=== PATIENT | female | born 1965 | race Caucasian/White ===

== ENCOUNTER 2024-02-25 11:40 | Emergency (ER) | payer BC, OTHER ==
[2024-02-25 11:51] VITALS: BP 116/78; PULSE 92; RESP 20; TEMP 97.6; BMI 23.6
[2024-02-25 13:06] LABS: BASO % 1.1 % (0-2.0); EOS % 1.3 % (0-4.5); HEMATOCRIT 32.2 % (32.4-45.2); HEMOGLOBIN 10.8 GM/dL (10.7-15.3); LYMPH % 32.3 % (8-40); MCHC 33.5 g/dl (32.0-36.0); MEAN CELL VOLUME 95.5 fl (80-96); MEAN PLT VOLUME 7.9 fl (7.5-11.1); MONO % 9.1 % (3.8-10.2); NEUT % 56.2 % (42.8-82.8); PLATELET COUNT 301 10^3/uL (134-434); RBC 3.37 M/mm3 (3.60-5.2); RDW 14.2 % (11.6-15.6); WHITE BLOOD COUNT 4.7 K/mm3 (4.0-10.0)
[2024-02-25] MEDS ORDERED: oxyCODONE HCL 5 MG TABLET ONE (13:12)
[2024-02-25] MEDS: oxyCODONE HCL 5 MG TABLET PO ONE (13:15)
[2024-02-25 13:27] LABS: POTASSIUM 4.4 mmol/L (3.5-5.1)
[2024-02-25 13:31] LABS: ALBUMIN 3.8 g/dl (3.4-5.0); BLOOD UREA NITROGEN 10.4 mg/dL (7-18); MAGNESIUM 2.1 mg/dL (1.8-2.4)
[2024-02-25 13:34] LABS: CREATININE 0.5 mg/dL (0.55-1.3)
[2024-02-25 13:35] LABS: BILIRUBIN,TOTAL 0.8 mg/dL (0.2-1); TOT PROT 7.3 g/dl (6.4-8.2)
== END 2024-02-25 14:00 | disposition home or self-care (01) ==
LOC: JERFT 11:40
DX: G62.9 Polyneuropathy, unspecified (principal)
CPT/HCPCS: 36415; 80053; 83735; 85025; 99283-25

== ENCOUNTER 2024-07-18 22:26 | Emergency (ER) | payer OTHER ==
[2024-07-18 22:32] VITALS: BMI 27.1
[2024-07-18 23:14] LABS: BASO % 1.1 % (0-2.0); HEMATOCRIT 34.1 % (32.4-45.2); HEMOGLOBIN 11.6 GM/dL (10.7-15.3); LYMPH % 54.1 % (8-40); MCH 31.3 pg (25.7-33.7); MCHC 33.9 g/dl (32.0-36.0); MEAN CELL VOLUME 92.1 fl (80-96); MONO % 8.3 % (3.8-10.2); NEUT % 35.5 % (42.8-82.8); PLATELET COUNT 237 10^3/uL (134-434); RDW 14.6 % (11.6-15.6); WHITE BLOOD COUNT 4.2 K/mm3 (4.0-10.0)
[2024-07-18 23:56] LABS: ALBUMIN 4.2 g/dl (3.4-5.0)
[2024-07-18 23:57] LABS: CALCIUM 9.2 mg/dL (8.5-10.1)
[2024-07-19] LABS: CREATININE 0.5 mg/dL (0.55-1.3); POTASSIUM 3.6 mmol/L (3.5-5.1)
[2024-07-19 00:02] LABS: TOT PROT 7.9 g/dl (6.4-8.2)
[2024-07-19] MEDS ORDERED: ACETAMINOPHEN INJECTION 100 ML ONE (00:04)
[2024-07-19] MEDS: ACETAMINOPHEN 1000 MG/100 ML BAG IVPB ONE (00:06)
[2024-07-19 00:13] LABS: BLOOD UREA NITROGEN 10.1 mg/dL (7-18)
[2024-07-19 00:23] LABS: BILIRUBIN,TOTAL 0.4 mg/dL (0.2-1)
[2024-07-19 00:51] VITALS: BP 128/79; PULSE 90; RESP 16; TEMP 98.2
== END 2024-07-19 00:51 | disposition home or self-care (01) ==
LOC: JER 22:26
PROC: 3E033NZ Introduction of Analgesics, Hypnotics, Sedatives into Peripheral Vein, Percutaneous Approach (ICD-10-PCS; principal; 2024-07-19)
DX: R07.89 Other chest pain (principal); R05.9 Cough, unspecified
CPT/HCPCS: 36415; 80053; 84484; 85025; 93005; 93010; 99284-25; J0131

== ENCOUNTER 2024-07-19 03:49 | Emergency (ER) | payer OTHER ==
[2024-07-19 04:14] VITALS: TEMP 98; BMI 28.0
[2024-07-19] MEDS ORDERED: IBUPROFEN 600 MG TABLET (FP) PO ONE (04:54)
[2024-07-19] MEDS ORDERED: ACETAMINOPHEN 325 MG TABLET (FP) ONE (04:54)
[2024-07-19] MEDS: ACETAMINOPHEN 500 MG TABLET (FP) PO ONE (04:59)
[2024-07-19] MEDS: IBUPROFEN 600 MG TABLET (FP) PO ONE (04:59)
[2024-07-19 05:54] VITALS: BP 110/69; PULSE 80; RESP 16
== END 2024-07-19 13:02 | disposition home or self-care (01) ==
LOC: JER 03:49
DX: R07.89 Other chest pain (principal); Z63.79 Other stressful life events affecting family and household
CPT/HCPCS: 99283-25

== ENCOUNTER 2024-07-21 12:57 | Observation (INO) | payer OTHER ==
[2024-07-21 13:46] VITALS: RESP 20; TEMP 98.4; BMI 27.1
[2024-07-21] MEDS ORDERED: ACETAMINOPHEN INJECTION 100 ML ONE (13:50)
[2024-07-21 13:56] LABS: BASO % 0.6 % (0-2.0); EOS % 0.2 % (0-4.5); HEMATOCRIT 32.1 % (32.4-45.2); HEMOGLOBIN 10.7 GM/dL (10.7-15.3); LYMPH % 38.7 % (8-40); MCH 31.3 pg (25.7-33.7); MCHC 33.4 g/dl (32.0-36.0); MEAN CELL VOLUME 93.7 fl (80-96); MEAN PLT VOLUME 7.3 fl (7.5-11.1); MONO % 5.9 % (3.8-10.2); NEUT % 54.6 % (42.8-82.8); PLATELET COUNT 202 10^3/uL (134-434); RBC 3.43 M/mm3 (3.60-5.2); RDW 14.9 % (11.6-15.6); WHITE BLOOD COUNT 4.3 K/mm3 (4.0-10.0)
[2024-07-21] MEDS: ACETAMINOPHEN 1000 MG/100 ML BAG IVPB ONE (13:58)
[2024-07-21 14:00] LABS: EPI CELLS 11 /uL (0-25.1); HYALINE CASTS 3 /uL (0-3.1); PH,URINE 5.5 (5.0-8.0); URINE APPEARANCE CLEAR; URINE BACTERIA 37 /uL (0-1359); URINE BILIRUBIN NEGATIVE (NEGATIVE); URINE COLOR YELLOW; URINE GLUCOSE (UA) NEGATIVE (NEGATIVE); URINE KETONE TRACE (NEGATIVE); URINE LEUK ESTERASE TRACE (NEGATIVE); URINE NITRITE NEGATIVE (NEGATIVE); URINE PROTEIN NEGATIVE (NEGATIVE); URINE RBC 29 /uL (0-23.9); URINE UROBILINOGEN 0.2 mg/dL (0.2-1.0); URINE WBC 13 /uL (0-25.8)
[2024-07-21 14:02] LABS: INR 0.95 (0.83-1.09); PROTHROMBIN TIME (PATIENT) 10.8 SEC (9.7-13.0)
[2024-07-21 14:04] LABS: ACTIVATED PTT 29.6 SECONDS (25.2-36.5)
[2024-07-21 14:13] LABS: POTASSIUM 3.5 mmol/L (3.5-5.1)
[2024-07-21 14:18] LABS: BLOOD UREA NITROGEN 9.9 mg/dL (7-18)
[2024-07-21 14:19] LABS: CALCIUM 8.8 mg/dL (8.5-10.1)
[2024-07-21 14:22] LABS: CREATININE 0.5 mg/dL (0.55-1.3)
[2024-07-21 14:23] LABS: BILIRUBIN,TOTAL 0.6 mg/dL (0.2-1); TOT PROT 7.6 g/dl (6.4-8.2)
[2024-07-21 16:33] VITALS: BP 111/65; PULSE 94
[2024-07-21] MEDS ORDERED: ACETAMINOPHEN 325 MG TABLET (FP) PO PRN (17:46)
== END 2024-07-21 20:40 | disposition left against medical advice (07) ==
LOC: JER 12:57 → JERBED 17:21
PROVIDERS: ADMIT Internal Medicine; ATTEND Internal Medicine
PROC: 3E033NZ Introduction of Analgesics, Hypnotics, Sedatives into Peripheral Vein, Percutaneous Approach (ICD-10-PCS; principal; 2024-07-21)
DX: R07.9 Chest pain, unspecified (principal); G62.9 Polyneuropathy, unspecified; K76.0 Fatty (change of) liver, not elsewhere classified; Z29.89 Encounter for other specified prophylactic measures
CPT/HCPCS: 36415; 71045-TC-FY; 71275-TC; 80053; 81003; 84443; 84484; 85025; 85379; 85610; 85730; 87086; 93005; 93010; 96374; 99285-25; G0378; J0131; Q9967

== ENCOUNTER 2024-07-29 20:48 | Observation (INO) | payer OTHER ==
[2024-07-29 21:12] VITALS: BMI 27.8
[2024-07-29] MEDS ORDERED: ACETAMINOPHEN 325 MG TABLET (FP) ONE (22:15)
[2024-07-29] MEDS: ACETAMINOPHEN 325 MG TABLET (FP) PO ONE (22:24)
[2024-07-30] MEDS ORDERED: ACETAMINOPHEN 500 MG TABLET (FP) PO PRN (02:23)
[2024-07-30 08:59] LABS: HEMATOCRIT 30.7 % (32.4-45.2); HEMOGLOBIN 10.2 GM/dL (10.7-15.3); MCHC 33.3 g/dl (32.0-36.0); MEAN CELL VOLUME 96.1 fl (80-96); MEAN PLT VOLUME 7.3 fl (7.5-11.1); PLATELET COUNT 172 10^3/uL (134-434); RDW 15.6 % (11.6-15.6); WHITE BLOOD COUNT 2.9 K/mm3 (4.0-10.0)
[2024-07-30 09:09] LABS: POTASSIUM 3.6 mmol/L (3.5-5.1)
[2024-07-30 09:13] LABS: ALBUMIN 3.4 g/dl (3.4-5.0); BLOOD UREA NITROGEN 9.5 mg/dL (7-18); CALCIUM 8.4 mg/dL (8.5-10.1); MAGNESIUM 2.1 mg/dL (1.8-2.4)
[2024-07-30 09:16] LABS: CREATININE 0.4 mg/dL (0.55-1.3); PHOSPHOROUS 3.5 mg/dL (2.5-4.9)
[2024-07-30 09:18] LABS: BILIRUBIN,TOTAL 0.4 mg/dL (0.2-1); TOT PROT 6.9 g/dl (6.4-8.2)
[2024-07-30] MEDS: DULoxetine HCL 30 MG CAPSULE.DR PO SCH (11:11)
[2024-07-30 12:12] VITALS: BP 124/74; PULSE 86; RESP 17; TEMP 98.2
== END 2024-07-30 14:15 | disposition home or self-care (01) ==
LOC: JER 20:48 → JERBED 23:43 → INTOOBSV 23:43
PROVIDERS: ADMIT Internal Medicine; ATTEND Internal Medicine
DX: R07.89 Other chest pain (principal); F41.9 Anxiety disorder, unspecified; T74.11XA Adult physical abuse, confirmed, initial encounter; Y07.010 Husband, current, perpetrator of maltreatment and neglect; Y93.89 Activity, other specified; Y92.89 Other specified places as the place of occurrence of the external cause; K76.0 Fatty (change of) liver, not elsewhere classified
CPT/HCPCS: 36415; 71045-TC-FY; 80053; 82550; 82553; 83735; 84100; 84484; 85027; 93005; 93010; 99285-25; G0378

== ENCOUNTER 2024-08-03 17:51 | Inpatient (IN) | payer OTHER ==
[2024-08-03 18:28] VITALS: BMI 27.8
[2024-08-03] MEDS ORDERED: MAGNESIUM HYDROX 2400MG/30ML ORAL SUSPENSION 30 ML CUP PO PRN (19:59)
[2024-08-03] MEDS ORDERED: DICYCLOMINE HCL 10 MG CAPSULE PO PRN (19:59)
[2024-08-03] MEDS ORDERED: guaiFENesin 600 MG TABLET.ER (FP) PO PRN (19:59)
[2024-08-03] MEDS ORDERED: NALOXONE (NARCAN) HCL 4 MG/0.1 ML SPRAY NS PRN (19:59)
[2024-08-03] MEDS ORDERED: ONDANSETRON *ODT* 4 MG TABLET SL PRN (19:59)
[2024-08-03] MEDS ORDERED: BENZOCAINE/MENTHOL (CHLORASEPTIC ) LOZENGE MM PRN (19:59)
[2024-08-03] MEDS ORDERED: MAG HYDROX/AL HYDROX/SIMETH 30 ML UNIT-DOSE CUP PO PRN (19:59)
[2024-08-03] MEDS ORDERED: POLYETHYLENE GLYCOL (HEALTHYLAX) 3350 17 GM PACKET PO PRN (19:59)
[2024-08-03] MEDS ORDERED: IBUPROFEN 600 MG TABLET (FP) PO PRN (19:59)
[2024-08-03] MEDS ORDERED: IBUPROFEN 400 MG TABLET (FP) PO PRN (19:59)
[2024-08-03] MEDS ORDERED: BENZONATATE 200 MG CAPSULE PO PRN (19:59)
[2024-08-03] MEDS ORDERED: LOPERAMIDE HCL 2 MG CAPSULE PO PRN (19:59)
[2024-08-03] MEDS ORDERED: BISMUTH SUBSALICYLATE 524 MG/30 ML PO PRN (19:59)
[2024-08-03] MEDS: NALOXONE (NYS OPIOID OVERDOSE PROGRAM) 4 MG/0.1 ML SPRAY NS ONE (22:59)
[2024-08-03] MEDS: MELATONIN 5 MG TABLETS PO SCH (23:00)
[2024-08-03] MEDS: THIAMINE 100 MG TABLET PO SCH (23:00)
[2024-08-04] MEDS: PRENATAL VITAMINS W/ FOLIC ACID TABLET (FP) PO SCH (10:55)
[2024-08-04] MEDS: hydrOXYzine PAMOATE 25 MG CAPSULE (FP) PO PRN (10:56)
[2024-08-04 11:24] LABS: HEMOGLOBIN 10.7 GM/dL (10.7-15.3); MCH 32.3 pg (25.7-33.7); MCHC 33.5 g/dl (32.0-36.0); MEAN CELL VOLUME 96.5 fl (80-96); MEAN PLT VOLUME 7.6 fl (7.5-11.1); PLATELET COUNT 180 10^3/uL (134-434); RBC 3.31 M/mm3 (3.60-5.2); RDW 16.9 % (11.6-15.6); WHITE BLOOD COUNT 4.2 K/mm3 (4.0-10.0)
[2024-08-04 15:02] LABS: CHLORIDE 103 mmol/L (98-107); POTASSIUM 4.2 mmol/L (3.5-5.1); SODIUM 139 mmol/L (136-145)
[2024-08-04 15:04] LABS: ALBUMIN 3.5 g/dl (3.4-5.0); ANION GAP 8 mmol/L (4-13); BLOOD UREA NITROGEN 12.3 mg/dL (7-18); CO2 28 mmol/L (21-32); GLUCOSE,RANDOM 140 mg/dL (74-106)
[2024-08-04 15:08] LABS: CREATININE 0.6 mg/dL (0.55-1.3); SGOT/AST 32 U/L (15-37); SGPT/ALT 25 U/L (13-61)
[2024-08-04 15:09] LABS: BILIRUBIN,TOTAL 0.7 mg/dL (0.2-1); TOT PROT 6.7 g/dl (6.4-8.2)
[2024-08-04 15:10] LABS: ALK PHOS 133 U/L (45-117)
[2024-08-04] MEDS: METHOCARBAMOL 500 MG TABLET PO PRN (17:39)
[2024-08-05] MEDS: ACETAMINOPHEN 325 MG TABLET (FP) PO PRN (05:56)
[2024-08-05 09:37] VITALS: RESP 18
[2024-08-05 13:21] VITALS: BP 114/65; PULSE 96; TEMP 98.2
== END 2024-08-05 14:48 | disposition home or self-care (01) | DRG 775 ==
LOC: YASAS 17:51 → Y6N 20:11
PROVIDERS: ADMIT Allergy & Immunology; ATTEND Surgery
PROC: HZ2ZZZZ Detoxification Services for Substance Abuse Treatment (ICD-10-PCS; principal; 2024-08-03)
DX: F10.20 Alcohol dependence, uncomplicated (principal); F10.280 Alcohol dependence with alcohol-induced anxiety disorder; F10.282 Alcohol dependence with alcohol-induced sleep disorder; F32.A Depression, unspecified; M94.0 Chondrocostal junction syndrome [Tietze]; Z86.718 Personal history of other venous thrombosis and embolism
CPT/HCPCS: 0241U-QW; 36415; 71045-TC-FY; 80048; 80053; 80305; 80307; 83735; 84100; 84484; 85025; 85027; 86780; 86803; 87389; 93005; 93010; 93971-TC; 99285-25; G0378

== ENCOUNTER 2024-08-06 07:57 | Emergency (ER) | payer OTHER ==
[2024-08-06 08:22] VITALS: BP 131/85; PULSE 81; RESP 18; TEMP 97.5; BMI 23.3
[2024-08-06] MEDS ORDERED: MAG HYDROX/AL HYDROX/SIMETH 30 ML UNIT-DOSE CUP ONE (08:33)
[2024-08-06] MEDS ORDERED: ACETAMINOPHEN INJECTION 100 ML ONE (08:33)
[2024-08-06] MEDS ORDERED: FAMOTIDINE 20 MG/50 ML IVPB 20 MG/50 ML MG IVPB ONE (08:33)
[2024-08-06] MEDS: MAG HYDROX/AL HYDROX/SIMETH 30 ML UNIT-DOSE CUP PO ONE (08:50)
[2024-08-06] MEDS: SODIUM CHLORIDE 0.9% 500 ML INFUS.BAG IV ONE (08:51)
[2024-08-06] MEDS: ACETAMINOPHEN 1000 MG/100 ML BAG IVPB ONE (08:52)
[2024-08-06] MEDS: FAMOTIDINE 20 MG/50 ML IVPB 20 MG/50 ML MG IVPB ONE (08:54)
[2024-08-06 08:59] LABS: BASO % 0.7 % (0-2.0); EOS % 0.9 % (0-4.5); HEMATOCRIT 32.3 % (32.4-45.2); HEMOGLOBIN 10.9 GM/dL (10.7-15.3); LYMPH % 41.3 % (8-40); MCH 32.6 pg (25.7-33.7); MCHC 33.7 g/dl (32.0-36.0); MEAN CELL VOLUME 96.7 fl (80-96); MEAN PLT VOLUME 7.6 fl (7.5-11.1); MONO % 10.8 % (3.8-10.2); NEUT % 46.3 % (42.8-82.8); PLATELET COUNT 207 10^3/uL (134-434); RBC 3.34 M/mm3 (3.60-5.2); RDW 17.2 % (11.6-15.6); WHITE BLOOD COUNT 3.5 K/mm3 (4.0-10.0)
[2024-08-06 09:21] LABS: ALBUMIN 3.6 g/dl (3.4-5.0); BLOOD UREA NITROGEN 6.2 mg/dL (7-18); CALCIUM 8.7 mg/dL (8.5-10.1)
[2024-08-06 09:24] LABS: CREATININE 0.4 mg/dL (0.55-1.3)
[2024-08-06 09:26] LABS: BILIRUBIN,TOTAL 0.3 mg/dL (0.2-1); TOT PROT 7.1 g/dl (6.4-8.2)
== END 2024-08-06 10:33 | disposition home or self-care (01) ==
LOC: JER 07:57
PROC: 3E033GC Introduction of Other Therapeutic Substance into Peripheral Vein, Percutaneous Approach (ICD-10-PCS; principal; 2024-08-06)
PROC: 3E033NZ Introduction of Analgesics, Hypnotics, Sedatives into Peripheral Vein, Percutaneous Approach (ICD-10-PCS; 2024-08-06)
DX: R07.89 Other chest pain (principal); G89.29 Other chronic pain
CPT/HCPCS: 36415; 71045-TC-FY; 80053; 84484; 85025; 93005; 93010; 96365; 96375; 99285-25; J0131

== ENCOUNTER 2024-08-06 19:21 | Emergency (ER) | payer OTHER ==
[2024-08-06 19:26] VITALS: BP 120/84; PULSE 86; RESP 17; TEMP 97.9; BMI 26.6
== END 2024-08-06 21:04 | disposition home or self-care (01) ==
LOC: JER 19:21
DX: R07.89 Other chest pain (principal); G89.29 Other chronic pain; F10.90 Alcohol use, unspecified, uncomplicated
CPT/HCPCS: 93005; 93010; 99284-25

== ENCOUNTER 2024-08-08 16:52 | Emergency (ER) | payer OTHER ==
[2024-08-08 17:42] VITALS: BP 104/67; PULSE 89; RESP 20; TEMP 98.7; BMI 26.6
[2024-08-08] MEDS ORDERED: ACETAMINOPHEN INJECTION 100 ML ONE (18:28)
[2024-08-08 18:33] LABS: BASO % 0.8 % (0-2.0); EOS % 0.8 % (0-4.5); HEMATOCRIT 32.3 % (32.4-45.2); HEMOGLOBIN 10.9 GM/dL (10.7-15.3); LYMPH % 40.8 % (8-40); MCH 32.6 pg (25.7-33.7); MCHC 33.7 g/dl (32.0-36.0); MEAN PLT VOLUME 7.1 fl (7.5-11.1); MONO % 11.6 % (3.8-10.2); PLATELET COUNT 213 10^3/uL (134-434); RBC 3.34 M/mm3 (3.60-5.2); RDW 18.5 % (11.6-15.6); WHITE BLOOD COUNT 2.9 K/mm3 (4.0-10.0)
[2024-08-08] MEDS: ACETAMINOPHEN 1000 MG/100 ML BAG IVPB ONE (18:41)
[2024-08-08 18:55] LABS: POTASSIUM 3.6 mmol/L (3.5-5.1)
[2024-08-08 18:58] LABS: BLOOD UREA NITROGEN 9.6 mg/dL (7-18)
[2024-08-08 19:01] LABS: CREATININE 0.5 mg/dL (0.55-1.3)
[2024-08-08 19:02] LABS: BILIRUBIN,TOTAL 0.4 mg/dL (0.2-1); TOT PROT 7.7 g/dl (6.4-8.2)
== END 2024-08-08 21:32 | disposition home or self-care (01) ==
LOC: JER 16:52
PROC: 3E033NZ Introduction of Analgesics, Hypnotics, Sedatives into Peripheral Vein, Percutaneous Approach (ICD-10-PCS; principal; 2024-08-08)
DX: R07.2 Precordial pain (principal); Z20.822 Contact with and (suspected) exposure to COVID-19
CPT/HCPCS: 0241U-QW; 36415; 71045-TC-FY; 80053; 84484; 85025; 93005; 93010; 99285-25; J0131

== ENCOUNTER 2024-08-08 23:32 | Emergency (ER) | payer OTHER ==
[2024-08-09] VITALS: BP 122/79; PULSE 90; RESP 18; TEMP 97.6; BMI 25.7
== END 2024-08-09 01:32 | disposition home or self-care (01) ==
LOC: JER 23:32
DX: R07.2 Precordial pain (principal); Z76.5 Malingerer [conscious simulation]; M79.662 Pain in left lower leg
CPT/HCPCS: 99283-25

== ENCOUNTER 2024-08-14 14:12 | Emergency (ER) | payer OTHER ==
[2024-08-14 14:22] VITALS: BP 105/77; PULSE 87; RESP 16; TEMP 98; BMI 26.6
[2024-08-14] MEDS ORDERED: ACETAMINOPHEN INJECTION 100 ML ONE (15:18)
[2024-08-14 15:24] LABS: EOS % 0.8 % (0-4.5); HEMATOCRIT 31.1 % (32.4-45.2); HEMOGLOBIN 10.4 GM/dL (10.7-15.3); LYMPH % 36.2 % (8-40); MCHC 33.6 g/dl (32.0-36.0); MEAN CELL VOLUME 98.1 fl (80-96); MEAN PLT VOLUME 6.8 fl (7.5-11.1); MONO % 11.6 % (3.8-10.2); NEUT % 50.4 % (42.8-82.8); PLATELET COUNT 210 10^3/uL (134-434); RBC 3.17 M/mm3 (3.60-5.2); RDW 18.8 % (11.6-15.6); WHITE BLOOD COUNT 3.3 K/mm3 (4.0-10.0)
[2024-08-14] MEDS: SODIUM CHLORIDE 1,000 ML IV STA (15:25)
[2024-08-14] MEDS: ACETAMINOPHEN 1000 MG/100 ML BAG IVPB ONE (15:25)
[2024-08-14 15:38] LABS: POTASSIUM 3.7 mmol/L (3.5-5.1)
[2024-08-14 15:39] LABS: ALBUMIN 3.4 g/dl (3.4-5.0); CALCIUM 8.6 mg/dL (8.5-10.1)
[2024-08-14 15:40] LABS: BLOOD UREA NITROGEN 12.2 mg/dL (7-18)
[2024-08-14 15:44] LABS: BILIRUBIN,TOTAL 0.2 mg/dL (0.2-1); CREATININE 0.5 mg/dL (0.55-1.3)
== END 2024-08-14 16:50 | disposition home or self-care (01) ==
LOC: JER 14:12
PROC: 3E033NZ Introduction of Analgesics, Hypnotics, Sedatives into Peripheral Vein, Percutaneous Approach (ICD-10-PCS; principal; 2024-08-14)
PROC: 3E0337Z Introduction of Electrolytic and Water Balance Substance into Peripheral Vein, Percutaneous Approach (ICD-10-PCS; 2024-08-14)
DX: R07.89 Other chest pain (principal); M79.661 Pain in right lower leg; M79.662 Pain in left lower leg; G89.29 Other chronic pain; G62.9 Polyneuropathy, unspecified
CPT/HCPCS: 36415; 71046-TC-FY; 80053; 84484; 85025; 93005; 93010; 96361; 96374; 99285-25; J0131

== ENCOUNTER 2024-08-14 18:13 | Emergency (ER) | payer OTHER ==
[2024-08-14 18:35] VITALS: BP 140/90; PULSE 98; RESP 16; TEMP 98.6; BMI 25.8
== END 2024-08-14 21:40 | disposition home or self-care (01) ==
LOC: JER 18:13
DX: R07.9 Chest pain, unspecified (principal); Z76.5 Malingerer [conscious simulation]
CPT/HCPCS: 82962; 93005; 93010; 99283-25

== ENCOUNTER 2024-08-24 03:28 | Inpatient (IN) | payer OTHER ==
[2024-08-24 04:10] VITALS: BMI 25.0
[2024-08-24] MEDS ORDERED: DICYCLOMINE HCL 10 MG CAPSULE PO PRN (05:58)
[2024-08-24] MEDS ORDERED: MAG HYDROX/AL HYDROX/SIMETH 30 ML UNIT-DOSE CUP PO PRN (05:58)
[2024-08-24] MEDS ORDERED: BENZOCAINE/MENTHOL (CHLORASEPTIC ) LOZENGE MM PRN (05:58)
[2024-08-24] MEDS ORDERED: NALOXONE (NYS OPIOID OVERDOSE PROGRAM) 4 MG/0.1 ML SPRAY NS PRN (05:58)
[2024-08-24] MEDS ORDERED: MAGNESIUM HYDROX 2400MG/30ML ORAL SUSPENSION 30 ML CUP PO PRN (05:58)
[2024-08-24] MEDS ORDERED: LOPERAMIDE HCL 2 MG CAPSULE PO PRN (05:58)
[2024-08-24] MEDS ORDERED: IBUPROFEN 400 MG TABLET (FP) PO PRN (05:58)
[2024-08-24] MEDS ORDERED: BENZONATATE 200 MG CAPSULE PO PRN (05:58)
[2024-08-24] MEDS ORDERED: NALOXONE (NARCAN) HCL 4 MG/0.1 ML SPRAY NS PRN (05:58)
[2024-08-24] MEDS ORDERED: ONDANSETRON *ODT* 4 MG TABLET SL PRN (05:58)
[2024-08-24] MEDS ORDERED: guaiFENesin 600 MG TABLET.ER (FP) PO PRN (05:58)
[2024-08-24] MEDS ORDERED: POLYETHYLENE GLYCOL (HEALTHYLAX) 3350 17 GM PACKET PO PRN (05:58)
[2024-08-24] MEDS ORDERED: BISMUTH SUBSALICYLATE 524 MG/30 ML PO PRN (05:58)
[2024-08-24] MEDS ORDERED: chlordiazePOXIDE HCL 25 MG CAPSULE ONE ×2 (06:18→10:45)
[2024-08-24] MEDS ORDERED: hydrOXYzine PAMOATE 25 MG CAPSULE (FP) PO ONE (06:18)
[2024-08-24] MEDS ORDERED: METHOCARBAMOL 500 MG TABLET ONE (06:18)
[2024-08-24] MEDS: hydrOXYzine PAMOATE 25 MG CAPSULE (FP) PO PRN (06:22)
[2024-08-24] MEDS: METHOCARBAMOL 500 MG TABLET PO PRN (06:22)
[2024-08-24] MEDS: chlordiazePOXIDE HCL 25 MG CAPSULE PO PRN (06:22)
[2024-08-24] MEDS ORDERED: PRENATAL VITAMINS W/ FOLIC ACID TABLET (FP) PO ONE (10:45)
[2024-08-24] MEDS: PRENATAL VITAMINS W/ FOLIC ACID TABLET (FP) PO SCH (10:51)
[2024-08-24] MEDS: chlordiazePOXIDE HCL 25 MG CAPSULE PO SCH (10:52)
[2024-08-24] MEDS ORDERED: ACETAMINOPHEN 325 MG TABLET (FP) ONE (11:03)
[2024-08-24] MEDS: ACETAMINOPHEN 325 MG TABLET (FP) PO PRN (11:04)
[2024-08-24] MEDS: MELATONIN 5 MG TABLETS PO SCH (22:10)
[2024-08-24] MEDS: THIAMINE 100 MG TABLET PO SCH (22:10)
[2024-08-25 09:26] LABS: POTASSIUM 3.9 mmol/L (3.5-5.1)
[2024-08-25 09:31] LABS: HEMATOCRIT 33.6 % (32.4-45.2); HEMOGLOBIN 11.1 GM/dL (10.7-15.3); MCH 33.5 pg (25.7-33.7); MCHC 33.1 g/dl (32.0-36.0); MEAN CELL VOLUME 101.2 fl (80-96); MEAN PLT VOLUME 8.6 fl (7.5-11.1); PLATELET COUNT 138 10^3/uL (134-434); RBC 3.32 M/mm3 (3.60-5.2); RDW 18.7 % (11.6-15.6); WHITE BLOOD COUNT 3.1 K/mm3 (4.0-10.0)
[2024-08-25 09:37] LABS: CALCIUM 9.6 mg/dL (8.5-10.1)
[2024-08-25 09:39] LABS: ALBUMIN 3.6 g/dl (3.4-5.0); BLOOD UREA NITROGEN 10.3 mg/dL (7-18)
[2024-08-25 09:42] LABS: CREATININE 0.5 mg/dL (0.55-1.3); TOT PROT 7.3 g/dl (6.4-8.2)
[2024-08-25] MEDS: IBUPROFEN 600 MG TABLET (FP) PO PRN (20:08)
[2024-08-26] MEDS: chlordiazePOXIDE HCL 25 MG CAPSULE PO SCH (05:45)
[2024-08-26] MEDS: NAPROXEN 500 MG TABLET PO PRN (13:36)
[2024-08-26] MEDS: LIDOCAINE 5% TOPICAL PATCH TP SCH (13:36)
[2024-08-26] MEDS: LIDOCAINE PATCH REMOVAL MC SCH (22:38)
[2024-08-27] MEDS: chlordiazePOXIDE HCL 10 MG CAPSULE PO SCH (05:55)
[2024-08-27] MEDS: chlordiazePOXIDE HCL 10 MG CAPSULE PO PRN (20:26)
[2024-08-28] MEDS: chlordiazePOXIDE HCL 10 MG CAPSULE PO SCH (05:55)
[2024-08-28 09:51] VITALS: RESP 18
[2024-08-28 13:32] VITALS: BP 133/92; PULSE 83; TEMP 97.8
[2024-08-29] MEDS ORDERED: chlordiazePOXIDE HCL 10 MG CAPSULE PO ONE (05:00)
== END 2024-08-28 14:17 | disposition home or self-care (01) | DRG 775 ==
LOC: YASAS 03:28 → Y6N 14:50
PROVIDERS: ADMIT Allergy & Immunology; ATTEND Surgery
PROC: HZ2ZZZZ Detoxification Services for Substance Abuse Treatment (ICD-10-PCS; principal; 2024-08-24)
DX: F10.230 Alcohol dependence with withdrawal, uncomplicated (principal); F41.9 Anxiety disorder, unspecified; F32.A Depression, unspecified; G62.9 Polyneuropathy, unspecified; K76.0 Fatty (change of) liver, not elsewhere classified; Z86.69 Personal history of other diseases of the nervous system and sense organs; Z91.410 Personal history of adult physical and sexual abuse; Z59.00 Homelessness unspecified
CPT/HCPCS: 36415; 80053; 80305; 80307; 85027; 86780; 93005; 93010

== ENCOUNTER 2024-08-30 03:34 | Emergency (ER) | payer OTHER ==
[2024-08-30 03:42] VITALS: BP 102/69; PULSE 84; RESP 20; TEMP 98; BMI 25.0
[2024-08-30] MEDS ORDERED: ACETAMINOPHEN 325 MG TABLET (FP) ONE (06:38)
[2024-08-30] MEDS: ACETAMINOPHEN 500 MG TABLET (FP) PO ONE (06:40)
== END 2024-08-30 08:06 | disposition home or self-care (01) ==
LOC: JER 03:34
DX: F10.129 Alcohol abuse with intoxication, unspecified (principal); M54.2 Cervicalgia; R51.9 Headache, unspecified; W01.198A Fall on same level from slipping, tripping and stumbling with subsequent striking against other object, initial encounter
CPT/HCPCS: 99283-25

== ENCOUNTER 2024-08-30 08:56 | Inpatient (IN) | payer OTHER ==
[2024-08-30 09:51] VITALS: BMI 26.6
[2024-08-30] MEDS ORDERED: LOPERAMIDE HCL 2 MG CAPSULE PO PRN (10:33)
[2024-08-30] MEDS ORDERED: ACETAMINOPHEN 325 MG TABLET (FP) PO PRN (10:33)
[2024-08-30] MEDS ORDERED: guaiFENesin 600 MG TABLET.ER (FP) PO PRN (10:33)
[2024-08-30] MEDS ORDERED: MAGNESIUM HYDROX 2400MG/30ML ORAL SUSPENSION 30 ML CUP PO PRN (10:33)
[2024-08-30] MEDS ORDERED: IBUPROFEN 400 MG TABLET (FP) PO PRN (10:33)
[2024-08-30] MEDS ORDERED: POLYETHYLENE GLYCOL (HEALTHYLAX) 3350 17 GM PACKET PO PRN (10:33)
[2024-08-30] MEDS ORDERED: MAG HYDROX/AL HYDROX/SIMETH 30 ML UNIT-DOSE CUP PO PRN (10:33)
[2024-08-30] MEDS ORDERED: NALOXONE (NARCAN) HCL 4 MG/0.1 ML SPRAY NS PRN (10:33)
[2024-08-30] MEDS ORDERED: BENZONATATE 200 MG CAPSULE PO PRN (10:33)
[2024-08-30] MEDS ORDERED: hydrOXYzine PAMOATE 25 MG CAPSULE (FP) PO ONE (11:38)
[2024-08-30] MEDS: hydrOXYzine PAMOATE 25 MG CAPSULE (FP) PO PRN (11:40)
[2024-08-30] MEDS ORDERED: METHOCARBAMOL 500 MG TABLET ONE (11:49)
[2024-08-30] MEDS: METHOCARBAMOL 500 MG TABLET PO PRN (11:51)
[2024-08-30] MEDS ORDERED: TUBERCULIN PPD 5 TU/0.1ML SYRINGE (IN PATIENT USE ONLY) ID ONE (14:34)
[2024-08-30] MEDS: IBUPROFEN 600 MG TABLET (FP) PO PRN (18:58)
[2024-08-30] MEDS: THIAMINE 100 MG TABLET PO SCH (21:13)
[2024-08-30] MEDS: MELATONIN 5 MG TABLETS PO SCH (21:13)
[2024-08-31] MEDS: PRENATAL VITAMINS W/ FOLIC ACID TABLET (FP) PO SCH (10:16)
[2024-08-31 11:32] LABS: EPI CELLS 6 /uL (0-25.1); HYALINE CASTS 1 /uL (0-3.1); URINE APPEARANCE CLEAR; URINE BACTERIA 8 /uL (0-1359); URINE BILIRUBIN NEGATIVE (NEGATIVE); URINE COLOR YELLOW; URINE GLUCOSE (UA) NEGATIVE (NEGATIVE); URINE KETONE NEGATIVE (NEGATIVE); URINE LEUK ESTERASE TRACE (NEGATIVE); URINE NITRITE NEGATIVE (NEGATIVE); URINE PROTEIN NEGATIVE (NEGATIVE); URINE RBC 6 /uL (0-23.9); URINE UROBILINOGEN 0.2 mg/dL (0.2-1.0); URINE WBC 21 /uL (0-25.8)
[2024-08-31] MEDS: NALTREXONE HCL 50 MG TABLET PO ONE (13:05)
[2024-08-31] MEDS: LACTULOSE 20 GM/30 ML UDC (FOR ORAL USE ONLY) PO SCH (13:06)
[2024-09-01] MEDS: THIAMINE 100 MG TABLET PO SCH (10:24)
[2024-09-01] MEDS: NALTREXONE HCL 50 MG TABLET PO SCH (10:24)
[2024-09-02] MEDS: BENZOCAINE/MENTHOL (CHLORASEPTIC ) LOZENGE MM PRN (01:11)
[2024-09-04] MEDS: LIDOCAINE HCL 5% TOP OINTMENT 50 GM TUBE TP SCH (21:38)
[2024-09-06] MEDS: FOLIC ACID 1 MG TABLET (FP) PO SCH (09:53)
[2024-09-06] MEDS: LIDOCAINE HCL 5% TOP OINTMENT 50 GM TUBE TP SCH (21:35)
[2024-09-08 06:52] VITALS: TEMP 97.7
[2024-09-08] MEDS: GABAPENTIN 100 MG CAPSULE PO SCH (21:17)
[2024-09-09 07:34] VITALS: RESP 18
[2024-09-10 06:45] VITALS: BP 122/77; PULSE 71
[2024-09-10] MEDS: NALOXONE (NYS OPIOID OVERDOSE PROGRAM) 4 MG/0.1 ML SPRAY NS PRN (09:10)
== END 2024-09-10 09:50 | disposition home or self-care (01) | DRG 772 ==
LOC: YASAS 08:56 → Y5N 11:31
PROVIDERS: ADMIT Psychiatry & Neurology Pain Medicine; ATTEND Psychiatry & Neurology Pain Medicine
PROC: HZ42ZZZ Group Counseling for Substance Abuse Treatment, Cognitive-Behavioral (ICD-10-PCS; principal; 2024-08-30)
DX: F10.20 Alcohol dependence, uncomplicated (principal); F10.282 Alcohol dependence with alcohol-induced sleep disorder; F10.280 Alcohol dependence with alcohol-induced anxiety disorder; F10.24 Alcohol dependence with alcohol-induced mood disorder; F43.22 Adjustment disorder with anxiety; F32.A Depression, unspecified; Z86.718 Personal history of other venous thrombosis and embolism; Z56.0 Unemployment, unspecified; Z59.00 Homelessness unspecified
CPT/HCPCS: 36415; 80305; 80307; 81003; 82140; 87811